=== PATIENT | male | born 1970 | race African-American/Black ===

== ENCOUNTER 2017-11-26 17:01 | Observation (INO) | payer SELFPAY, BC, MEDICAID ==
[2017-11-26 17:39] LABS: ADD MAN DIFF? NO
[2017-11-26 17:42] LABS: BASO % 0 % (0-3); EOS % 1 % (0-3); HEMATOCRIT 38.5 % (39.0-53.0); HEMOGLOBIN 13.3 g/dL (13.0-17.5); LYMPH # 2.3 x10^3/uL (1.0-4.8); LYMPH % 31 % (24-48); MEAN CORPUSCULAR HEMOGLOBIN 30 pg (25-35); MEAN CORPUSCULAR HGB CONC 35 g/dL (31-37); MEAN CORPUSCULAR VOLUME 87 fL (79-100); MONO # 0.4 x10^3/uL (0.0-1.1); MONO % 5 % (0-9); NEUT # 4.7 x10^3uL (1.8-7.7); NEUT % 63 % (31-73); PLATELET COUNT 196 x10^3/uL (140-400); RED BLOOD COUNT 4.43 x10^6/uL (4.30-5.70); RED CELL DISTRIBUTION WIDTH 15.2 % (11.5-14.5); WHITE BLOOD COUNT 7.4 x10^3/uL (4.0-11.0)
[2017-11-26] MEDS: MORPHINE SULFATE 10 MG/ML VIAL. IV (17:52)
[2017-11-26] MEDS: ONDANSETRON PF 4 MG/2 ML VIAL. IV (17:52)
[2017-11-26 17:53] LABS: PARTIAL THROMBOPLASTIN TIME 33 SEC (24-38); PROTHROMBIN TIME PATIENT 12.9 SEC (11.7-14.0)
[2017-11-26 17:57] LABS: ANION GAP 11 (6-14); BLOOD UREA NITROGEN 14 mg/dL (8-26); BUN/CREATININE RATIO 11 (6-20); CARBON DIOXIDE 28 mmol/L (21-32); CHLORIDE 103 mmol/L (98-107); CREATININE 1.3 mg/dL (0.7-1.3); GFR 71.9; GLUCOSE 106 mg/dL (70-99); POTASSIUM 3.5 mmol/L (3.5-5.1); SODIUM 142 mmol/L (136-145)
[2017-11-26 18:00] LABS: ALBUMIN 3.9 g/dL (3.4-5.0); ALBUMIN/GLOBULIN RATIO 0.9 (1.0-1.7); ALK PHOS 88 U/L (46-116); ALT (SGPT) 36 U/L (16-63); AST (SGOT) 24 U/L (15-37); LIPASE 138 U/L (73-393); MAGNESIUM 1.9 mg/dL (1.8-2.4); TOTAL BILIRUBIN 0.3 mg/dL (0.2-1.0); TOTAL PROTEIN 8.1 g/dL (6.4-8.2)
[2017-11-26 18:06] LABS: TROPONINI < 0.017 ng/mL (0.000-0.055)
[2017-11-26 18:10] LABS: NT-PRO BNP 65 pg/mL (0-124)
[2017-11-26 18:14] LABS: THYROID STIM HORMONE (TSH) 2.006 uIU/mL (0.358-3.74)
[2017-11-26] MEDS ORDERED: fentaNYL PF VIAL 100 MCG/2 ML VIAL IV (19:00)
[2017-11-26] MEDS ORDERED: ONDANSETRON PF 4 MG/2 ML VIAL. IV (19:00)
[2017-11-26 19:35] LABS: BILIRUBIN,URINE NEGATIVE (NEG); CLARITY,URINE CLOUDY; COLOR,URINE YELLOW; GLUCOSE,URINE NEGATIVE (NEG); NITRITE,URINE NEGATIVE (NEG); PROTEIN,URINE NEGATIVE (NEG-TRACE); UROBILINOGEN,URINE 0.2 mg/dL (0.2 mg/dL)
[2017-11-26 19:41] LABS: AMORPHOUS SEDIMENT,UR PRESENT /HPF; BACTERIA,URINE 0 /HPF (0-FEW); RBC,URINE 0 /HPF (0-2); WBC,URINE 0 /HPF (0-4)
[2017-11-26] MEDS: amLODIPine BESYLATE 10 MG TABLET PO (21:26)
[2017-11-26] MEDS: LISINOPRIL 20 MG TABLET PO (21:26)
[2017-11-26] MEDS: hydroCHLOROthiazide 25 MG TABLET PO (21:26)
[2017-11-26 22:43] LABS: TROPONINI < 0.017 ng/mL (0.000-0.055)
[2017-11-27 01:09] LABS: ADD MAN DIFF? NO
[2017-11-27 01:13] LABS: BASO % 1 % (0-3); EOS # 0.1 x10^3/uL (0.0-0.7); EOS % 1 % (0-3); HEMATOCRIT 37.4 % (39.0-53.0); HEMOGLOBIN 12.9 g/dL (13.0-17.5); LYMPH # 2.4 x10^3/uL (1.0-4.8); LYMPH % 35 % (24-48); MEAN CORPUSCULAR HEMOGLOBIN 30 pg (25-35); MEAN CORPUSCULAR HGB CONC 35 g/dL (31-37); MEAN CORPUSCULAR VOLUME 87 fL (79-100); MONO # 0.5 x10^3/uL (0.0-1.1); MONO % 7 % (0-9); NEUT # 3.8 x10^3uL (1.8-7.7); NEUT % 57 % (31-73); PLATELET COUNT 192 x10^3/uL (140-400); RED BLOOD COUNT 4.32 x10^6/uL (4.30-5.70); RED CELL DISTRIBUTION WIDTH 14.8 % (11.5-14.5); WHITE BLOOD COUNT 6.8 x10^3/uL (4.0-11.0)
[2017-11-27 01:30] LABS: ANION GAP 9 (6-14); BLOOD UREA NITROGEN 11 mg/dL (8-26); CALCIUM 8.8 mg/dL (8.5-10.1); CARBON DIOXIDE 28 mmol/L (21-32); CHLORIDE 103 mmol/L (98-107); CREATININE 1.2 mg/dL (0.7-1.3); GFR 78.9; GLUCOSE 134 mg/dL (70-99); SODIUM 140 mmol/L (136-145)
[2017-11-27 01:38] LABS: TROPONINI < 0.017 ng/mL (0.000-0.055)
[2017-11-27 04:46] LABS: POTASSIUM 2.9 mmol/L (3.5-5.1)
[2017-11-27] MEDS: POTASSIUM CHLORIDE 20 MEQ TABLET.ER. PO ×2 (05:02→09:03)
[2017-11-27] MEDS: LISINOPRIL 20 MG TABLET PO (09:05)
[2017-11-27] MEDS: amLODIPine BESYLATE 10 MG TABLET PO (09:05)
[2017-11-27] MEDS ORDERED: ONDANSETRON PF 4 MG/2 ML VIAL. IV (09:15)
[2017-11-27 10:15] LABS: CHOLESTEROL 168 mg/dL (0-200); HDLC 32 mg/dL (40-60); LDLC 98 mg/dL (0-100); NON-HDL CHOLESTEROL 136 mg/dL (0-129); TRIGLYCERIDES 192 mg/dL (0-150); VLDLC 38 mg/dL (0-40)
[2017-11-27] MEDS: hydroCHLOROthiazide 12.5 MG CAPSULE PO (10:19)
[2017-11-27 10:26] LABS: CHOLESTEROL/HDL RATIO 5.3
[2017-11-27 10:49] LABS: TROPONINI < 0.017 ng/mL (0.000-0.055)
[2017-11-27 12:00] LABS: AMPHETAMINE/METHAMPHETAMINE NEG (NEG); BARBITURATES NEG (NEG); BENZODIAZEPINES NEG (NEG); CANNABINOIDS POS (NEG); COCAINE NEG (NEG); ETHANOL, URINE NEG (NEG); METHADONE NEG (NEG); OPIATES POS (NEG); PHENCYCLIDINE NEG (NEG)
[2017-11-27 13:13] LABS: POTASSIUM 3.6 mmol/L (3.5-5.1)
== END 2017-11-27 15:40 | disposition home or self-care (01) ==
LOC: ER 17:01 → 1 WEST ICU 18:36 → 2 NORTH 22:05
DX: I10 Essential (primary) hypertension (principal); E66.9 Obesity, unspecified; E87.6 Hypokalemia; E78.5 Hyperlipidemia, unspecified; Z82.49 Family history of ischemic heart disease and other diseases of the circulatory system; Z86.73 Personal history of transient ischemic attack (TIA), and cerebral infarction without residual deficits; Z68.34 Body mass index [BMI] 34.0-34.9, adult
CPT/HCPCS: 36415; 70450; 71045; 80048; 80053; 80061; 80307; 81001; 83690; 83735; 83880; 84132; 84443; 84484; 85025; 85610; 85730; 93005; 93306; 96365; 96366; 96375; 99285; G0378; G0379; J2270; J2405; J7050